=== PATIENT | female | born 1950 | race Caucasian/White ===

== ENCOUNTER 2024-09-19 08:25 | Day surgery (SDC) | payer MEDICARE, OTHER ==
[2024-09-17 11:39] VITALS: BP 138/89
[~2024-09-19] VITALS: Ht 160 cm; Wt 47.7 kg
[~2024-09-19 08:25] MED LIST: ALEVE220 M1 PO; APPEAREX2500 MCG PO; ASPIR-LOW81 MG PO; BLACK COHOSH40 MG PO; CALCIUM + VITA1 EAC1 PO; DAILY VITAMIN1 EAC2 PO; GLUCOSAMINE HC500 MG PO; IBLOOD GLUCOSE TEST STRIP 1 EA TEST VI PRN; LACTATED RINGER'S 1,000 ML IV SCH; LEVOTHYROXINE100 MCG PO; LIDOCAINE HCL 1% 5 ML SDV INJ ONE; LOVASTATIN20 MG PO; MIDAZOLAM HCL 5 MG/5 ML VIAL IV PRN; OMEGA 3-6-9 11200 MG PO; PRENATAL FORMU1 EAC2 PO; PROCHLORPERAZINE EDISYLATE 10 MG/2 ML VIAL IV SCH; TRIAMTERENE-HC1 EAC1 PO; fentaNYL citrate 100 MCG/2 ML VIAL IV PRN; ondansetron HCL 4 MG/2 ML VIAL IV SCH; propofoL 200 MG/20 ML VIAL ONE
[2024-09-19 08:40] VITALS: BP 134/71
[2024-09-19] MEDS ORDERED: METFORMIN HCL500 MG PO (08:46)
[2024-09-19] MEDS ORDERED: GLUCAGON,HUMAN RECOMBINANT 1 MG/ML VIAL ONE (10:09)
[2024-09-19] MEDS ORDERED: LACTATED RINGER'S 1,000 ML IV ONE (10:11)
--- NOTE | 2024-09-19 10:27 | NUR ---
09/19/24 Tiarra7 Lucy Daigle 1021-PATIENT ARRIVED TO PACU ON 10L MASK NONAROUSABLE ORAL AIRWAY IN PLACE LAYING LEFT LATERAL. ABDOMEN SOFT. IVF INFUSING. PLACED ON 6L MASK RR EVEN
[2024-09-19 11:04] VITALS: BP 113/77
--- NOTE | 2024-09-20 06:59 | OR ---
[facility] [address] [place], [place] [address] Signed DATE OF OPERATION: 09/19/2024 SURGEON: Tl Lopez MD PREOPERATIVE DIAGNOSES: 1. Sister with colon cancer, age 69. 2. External hemorrhoids. POSTOPERATIVE DIAGNOSES: 1. A 10 mm pedunculated polyp at 22 cm in sigmoid colon. 2. A 4 mm polyp in proximal right colon. 3. Redundant colon. 4. Tortuous colon. 5. Minimal internal and external hemorrhoids. PROCEDURES: Colonoscopy, snare polypectomy, and hot biopsy. ESTIMATED BLOOD LOSS: None. INDICATIONS FOR THE PROCEDURE: Lynette is a 73-year-old female, who came to the office for followup colonoscopy. I helped her initially in 2013 at the age of 63 for her initial screening colonoscopy. She had some small external hemorrhoids. We asked her to follow up in 10 years. She has no lower GI complaints. She is now diabetic and has to use metformin. She suffers with some postoperative nausea and vomiting. We gave her Zofran and Phenergan, which really helped; however, with that plus the enormous amount of Versed and fentanyl she took she slept all the way until the 0230 the next day. She said her friend could barely get her home. She also told me her sister was diagnosed with colon cancer at age 69. In that regard, she will need to shorten her interval followups to five years. In the office, I had given her a pamphlet on colonoscopy. We had reviewed the nature of the test. There is risk including, but not limited to gas bloating, crampy abdominal pain, bleeding, perforation requiring surgery, and missed diagnosis. We also reviewed the written instructions for a bowel prep line by line. We also recommended that she use monitored anesthesia care propofol infusion based on her last colonoscopy plus her frequent use of alcohol that proved to be a noriega decision. She also told me that her will be helping her on this occasion. Apparently, her friend has moved away. We had hold her metformin the morning of the procedure. We also had her hold the fish oil one week prior to the procedure. On this occasion, we gave her Zofran and Electronically Signed By: TL LOPEZ MD 09/20/24 0659 PATIENT NAME: LYNETTE GRAJEDA LYNNE OPERATIVE REPORT DATE OF : 54 REPORT #: [id number] PHYSICIAN: TL LOPEZ MD PCP: ZULEMA MOSLEY MD REPORT IS CONFIDENTIAL AND NOT TO BE RELEASED WITHOUT AUTHORIZATION [facility] [address] [place], [place] [address] Signed Compazine. Phenergan is not on our formulary at this time. She had expressed understanding and would like to proceed. PROCEDURE NOTE: Lynette was taken into our endoscopy suite and placed in the left lateral decubitus position. She was given monitored anesthesia care, propofol infusion per our nurse ribbon winder. A digital rectal exam was performed. She did have some small external hemorrhoids. Good sphincter tone. No masses. The adult colonoscope was introduced and advanced under direct visualization of camera. We encountered a pedunculated polyp at 22 cm. We were having a lot of contractions to the sigmoid colon, so we gave a mg of glucagon with good results. Initial snare cut the polyp in half than we put the snare back over, cut it near the base of the stalk. We then cauterized the base of the stalk with the help of hot biopsy forceps. We captured part of that polyp in our trap. We also put the base of the polyp in the canister as well. The scope was then advanced carefully and slowly up to a redundant and tortuous colon. It took extra propofol and abdominal compression in order to advance the scope. We had to pass the scope in and out frequently. This is quite common for thin patients, especially since she has a body mass index of 18. Eventually, we got the colon straightened out and finally made it into the cecum itself. She had a little bit of liquid stool, which we suctioned out. The scope was then slowly withdrawn. We could easily see the appendiceal orifice and ileocecal valve. She had just a small 4 mm polyp in her proximal right colon, which we removed with the help of hot biopsy forceps. The scope was then slowly withdrawn. There was no diverticulosis. In the rectum, the scope was retroflexed and she has very minimal internal hemorrhoid tissue. After this, the gas was suctioned out. The colonoscope removed. Lynette tolerated the procedure quite well. RECOMMENDATIONS: Lynette will return to my office in 7 to 14 days to review her results. It looks like based on her current results plus her family history of colon cancer in her sister that she is going to need colonoscopy every five years. She will also need monitored anesthesia care in the future. Tl Lopez MD ALB/JAMESL /[id number] Electronically Signed By: TL LOPEZ MD 09/20/24 0659 PATIENT NAME: LYNETTE GRAJEDA LYNNE OPERATIVE REPORT DATE OF : 54 REPORT #: [id number] PHYSICIAN: TL LOPEZ MD PCP: ZULEMA MOSLEY MD REPORT IS CONFIDENTIAL AND NOT TO BE RELEASED WITHOUT AUTHORIZATION [address] [id number] [place], [place] [address] Signed cc: Patient Chart MD Tl Schmidt MD Copies: ZULEMA MOSLEY DMD, ANDREW L MD ~ Electronically Signed By: TL LOPEZ MD 09/20/24 0659 PATIENT NAME: LYNETTE GRAJEDA LYNNE OPERATIVE REPORT DATE OF : 54 REPORT #: [id number] PHYSICIAN: TL LOPEZ MD PCP: ZULEMA MOSLEY MD REPORT IS CONFIDENTIAL AND NOT TO BE RELEASED WITHOUT AUTHORIZATION
--- NOTE | 2024-09-23 16:15 | PATH ---
[facility] [address] [facility] [place], [place] [address] Signed SPECIMEN(S): A SIGMOID POLYP AT 22 CM SPECIMEN(S): B PROXIMAL ASCENDING COLON POLYP SPECIMEN SOURCE: A. SIGMOID POLYP AT 22 CM B. PROXIMAL ASCENDING COLON POLYP CLINICAL HISTORY: Surveillance-family history of polyps FINAL PATHOLOGIC DIAGNOSIS: A. Sigmoid polyp at 22 cm: - Tubular adenoma (one fragment). B. Proximal ascending colon polyp: - Tubular adenoma (one fragment). JVR:emmy MICROSCOPIC EXAMINATION: Histologic sections of all submitted blocks are examined by light microscopy. These findings, together with the gross examination, support the pathologic diagnosis. GROSS DESCRIPTION: A. The specimen, labeled and designated "Bracher, sigmoid colon polyp at 22 cm.," is received in formalin and consists of two schwartz soft tissue fragments, ranging from 0.2 to 0.4 cm. Entirely submitted in (A1). B. The specimen, labeled and designated "Bracher, proximal ascending colon polyp," is received in formalin and consists of one schwartz soft tissue fragment, 0.2 cm. Entirely submitted in (B1). JS (under the direct supervision of a pathologist) The Gross Description was prepared using a voice recognition system. The report was reviewed for accuracy; however, sound-alike word errors, addition and/or deletions may occur. If there is any question about this report, please contact Client Services. PERFORMING LABORATORY: Technical component was performed by [facility], [address] [place] [id number] (CLIA# [id number]). Professional interpretation was performed by [facility], [address] [place] [address], [place] [address] (CLIA#: [id number]). PATIENT NAME: HEMANTH GRAJEDA LYNNE PATHOLOGY DATE OF : 54 REPORT #: [id number] PHYSICIAN: [facility] PCP: ZULEMA MOSLEY MD REPORT IS CONFIDENTIAL AND NOT TO BE RELEASED WITHOUT AUTHORIZATION [address] [address] Signed Diagnostician: Everardo Zuleta MD Pathologist Electronically Signed 09/23/2024 Copies: ~ PATIENT NAME: HEMANTH GRAJEDA LYNNE PATHOLOGY DATE OF : 54 REPORT #: [id number] PHYSICIAN: [facility] PCP: ZULEMA MOSLEY MD REPORT IS CONFIDENTIAL AND NOT TO BE RELEASED WITHOUT AUTHORIZATION
== END 2024-09-19 11:15 | disposition home or self-care (01) ==
LOC: DS 08:25
PROVIDERS: ATTEND Colon & Rectal Surgery
PROC: 0DBN8ZZ Excision of Sigmoid Colon, Via Natural or Artificial Opening Endoscopic (ICD-10-PCS; 2024-09-19)
PROC: 0DBF8ZX Excision of Right Large Intestine, Via Natural or Artificial Opening Endoscopic, Diagnostic (ICD-10-PCS; principal; 2024-09-19 09:45)
DX: Z12.11 Encounter for screening for malignant neoplasm of colon (principal); D12.2 Benign neoplasm of ascending colon; D12.5 Benign neoplasm of sigmoid colon; K63.89 Other specified diseases of intestine; K64.8 Other hemorrhoids; K64.4 Residual hemorrhoidal skin tags; I10 Essential (primary) hypertension; E11.9 Type 2 diabetes mellitus without complications; E78.00 Pure hypercholesterolemia, unspecified; E03.9 Hypothyroidism, unspecified; Z79.890 Hormone replacement therapy; Z79.899 Other long term (current) drug therapy; Z80.0 Family history of malignant neoplasm of digestive organs; Z88.0 Allergy status to penicillin; Z88.2 Allergy status to sulfonamides; Z88.8 Allergy status to other drugs, medicaments and biological substances
CPT/HCPCS: 00811; 88305; J0780; J1610; J2405; J2704; J7121